=== PATIENT | female | born 1980 | race African-American/Black ===

== ENCOUNTER 2024-10-26 11:52 | Emergency (ER) | payer MEDICAID ==
[~2024-10-26] VITALS: Ht 170.2 cm; Wt 70.0 kg
[~2024-10-26 11:52] MED LIST: KEPP500 PO; PHEN100C4 PO
[2024-10-26 11:54] VITALS: O2SAT 99
[2024-10-26] MEDS: LEVETIRACETAM 1000MG PREMIX 100 ML IV ONE (12:40)
[2024-10-26] MEDS: IBUPROFEN 600MG TABLET PO STA (12:40)
[2024-10-26 13:09] LABS: RED CELL DISTRIBUTION WIDTH 15.6 % (11.6-14.6)
[2024-10-26 13:14] LABS: CHLORIDE 108 mEq/L (98-107); POTASSIUM 4.6 mEq/L (3.5-5.1); SODIUM 137 mEq/L (136-145)
[2024-10-26 13:15] LABS: CALCIUM 9.1 mg/dL (8.7-10.4); CARBON DIOXIDE 22 mEq/L (21-32)
[2024-10-26 13:19] LABS: HEMATOCRIT. 41.5 % (36.0-48.0); HEMOGLOBIN. 13.4 g/dL (12.0-16.0); MEAN CORPUSCULAR HGB CONC 32.3 g/dL (31.0-37.0); MEAN CORPUSCULAR VOLUME 86.7 fL (81.0-99.0); RED BLOOD CELL COUNT 4.78 mill/uL (4.2-5.4)
[2024-10-26 13:20] LABS: CREATININE 0.8 mg/dL (0.6-1.0); GLUCOSE 92 mg/dL (70-105); UREA NITROGEN BLOOD 14 mg/dL (9-23)
[2024-10-26 13:21] LABS: DIFFERENTIAL COMMENT 1
[2024-10-26] MEDS ORDERED: KEPP500 MT (13:37)
[2024-10-26] MEDS ORDERED: PHEN100C12 PO (13:46)
[2024-10-26 13:47] LABS: ETHANOL BLOOD < 10 mg/dL (<10)
[2024-10-26 14:45] VITALS: BP 132/83; PULSE 88; RESP 18; TEMP 37; O2SAT 99
[2024-10-26 17:08] LABS: MEAN PLATELET VOLUME 9.3 fl (7.4-10.4); PLATELET 216 x1000/uL (130-400)
[2024-10-26 17:10] LABS: PLATELET ESTIMATE NORMAL
== END 2024-10-26 15:00 | disposition home or self-care (01) ==
LOC: ER 11:52
DX: G40.909 Epilepsy, unspecified, not intractable, without status epilepticus (principal); S52.592D Other fractures of lower end of left radius, subsequent encounter for closed fracture with routine healing; F17.200 Nicotine dependence, unspecified, uncomplicated; I10 Essential (primary) hypertension; J45.909 Unspecified asthma, uncomplicated; Z79.899 Other long term (current) drug therapy; F10.90 Alcohol use, unspecified, uncomplicated; W19.XXXA Unspecified fall, initial encounter; Y90.9 Presence of alcohol in blood, level not specified
CPT/HCPCS: 80048; 80320; 85025; 36415; 73100; 96365; 99284; J1953; Z7610; C1893; G0480

== ENCOUNTER 2025-07-02 07:20 | Inpatient (IN) | payer MEDICAID ==
[~2025-07-02] VITALS: Ht 170.2 cm; Wt 77.1 kg
[~2025-07-02 07:20] MED LIST changes: +KEPP500 MT; +PHEN100C12 PO
[2025-07-02 07:22] VITALS: O2SAT 98
[2025-07-02 08:32] LABS: BASOPHILS % 0.7 % (0.0-2.0); EOSINOPHILS % 0.8 % (0.0-5.0); HEMATOCRIT. 40.2 % (36.0-48.0); HEMOGLOBIN. 12.9 g/dL (12.0-16.0); LYMPHOCYTES % 25.4 % (20.0-50.0); MEAN PLATELET VOLUME 8.4 fl (7.4-10.4); MONOCYTES % 7.9 % (2.0-8.0); NEUTROPHILS % 65.2 % (40.0-76.0); PLATELET 206 x1000/uL (130-400); RED BLOOD CELL COUNT 4.63 mill/uL (4.2-5.4); RED CELL DISTRIBUTION WIDTH 15.4 % (11.6-14.6)
[2025-07-02 08:46] LABS: HCG SCREEN NEGATIVE
[2025-07-02 08:48] LABS: CREATININE 0.9 mg/dL (0.6-1.0); UREA NITROGEN BLOOD 9 mg/dL (9-23)
[2025-07-02 08:49] LABS: ETHANOL BLOOD < 10 mg/dL (<10)
[2025-07-02] MEDS: LEVETIRACETAM 500MG TABLET PO ONE (08:56)
[2025-07-02] MEDS: LEVETIRACETAM 1000MG PREMIX 100 ML IV ONE (08:56)
[2025-07-02] MEDS ORDERED: ONDANSETRON HCL 4MG/2ML INJ IV PRN (10:30)
[2025-07-02] MEDS ORDERED: IPRATROPIUM/ALBUTEROL 0.5-3(2.5)MG/3ML NEB HHN PRN (10:30)
[2025-07-02] MEDS ORDERED: LORAZEPAM 2MG/ML UD SYRINGE IV PRN (10:30)
[2025-07-02] MEDS ORDERED: DOCUSATE SODIUM 100MG CAPSULE PO PRN (10:30)
[2025-07-02] MEDS ORDERED: GUAIFENESIN 200MG/10ML SUGAR FREE UDC PO PRN (10:30)
[2025-07-02] MEDS ORDERED: ACETAMINOPHEN 325MG TABLET PO PRN ×2 (10:30)
[2025-07-02] MEDS ORDERED: CLONIDINE 0.1MG TABLET PO PRN (10:30)
[2025-07-02] MEDS ORDERED: MAGNESIUM/ALUMINUM HYDROXIDE/SIMETHICONE 30ML UDC PO PRN (10:30)
[2025-07-02 11:34] LABS: PHENYTOIN < 2.0 ug/mL (10-20)
[2025-07-02] MEDS ORDERED: LEVETIRACETAM 1500MG PREMIX 100 ML IV SCH ×2 (12:00→21:00)
[2025-07-02] MEDS: LEVETIRACETAM 500MG/5ML CUP PO SCH (13:07)
[2025-07-02 16:00] VITALS: BP 118/65; PULSE 90; RESP 18; TEMP 36.6; O2SAT 98
[2025-07-02 17:00] VITALS: BP 114/67; PULSE 97; RESP 18; TEMP 36.5292
[2025-07-02 20:00] VITALS: BP 130/85; PULSE 78; RESP 18; TEMP 36.6; O2SAT 98
[2025-07-02] MEDS: LEVETIRACETAM 500MG TABLET PO SCH (21:47)
[2025-07-02] MEDS: AMLODIPINE 5MG TABLET PO SCH (21:47)
[2025-07-03 04:00] VITALS: BP 121/78; PULSE 77; RESP 18; TEMP 36.5; O2SAT 98
[2025-07-03] MEDS: PANTOPRAZOLE 40MG DR TABLET PO SCH (07:20)
[2025-07-03 07:39] LABS: BASOPHILS % 1.3 % (0.0-2.0); EOSINOPHILS % 1.4 % (0.0-5.0); HEMATOCRIT. 45.3 % (36.0-48.0); HEMOGLOBIN. 14.6 g/dL (12.0-16.0); LYMPHOCYTES % 36.3 % (20.0-50.0); MEAN PLATELET VOLUME 8.8 fl (7.4-10.4); MONOCYTES % 9.7 % (2.0-8.0); NEUTROPHILS % 51.3 % (40.0-76.0); PLATELET 230 x1000/uL (130-400); RED BLOOD CELL COUNT 5.24 mill/uL (4.2-5.4); RED CELL DISTRIBUTION WIDTH 15.3 % (11.6-14.6)
[2025-07-03 07:44] LABS: CREATININE 0.8 mg/dL (0.6-1.0); TRIGLYCERIDE 91 mg/dL (0-150); UREA NITROGEN BLOOD 9 mg/dL (9-23)
[2025-07-03 07:45] LABS: ASPARTATE AMINOTRANSFERASE 21 IU/L (<34); LDL CHOLESTEROL 111 mg/dL (5-100)
[2025-07-03 07:46] LABS: BILIRUBIN DIRECT < 0.1 mg/dL (<=3.0); BILIRUBIN TOTAL 0.3 mg/dL (0.1-1.0); PROTEIN TOTAL 8.3 g/dL (6.0-8.3); T4 FREE 0.84 ng/dL (0.89-1.76)
[2025-07-03] MEDS ORDERED: LIDOCAINE HCL 1% 10 MG/ML 10ML VIAL ONE (07:47)
[2025-07-03 08:00] VITALS: BP 120/67; PULSE 70; RESP 18; TEMP 36.5; O2SAT 100
[2025-07-03 12:00] VITALS: BP 128/85; PULSE 94; RESP 18; TEMP 36.4; O2SAT 95
[2025-07-03 16:00] VITALS: BP 123/78; PULSE 65; RESP 18; TEMP 36.5; O2SAT 100
[2025-07-03 20:00] VITALS: BP 125/89; PULSE 72; RESP 16; TEMP 36.6; O2SAT 99
[2025-07-04 04:00] VITALS: BP 128/84; PULSE 76; RESP 16; TEMP 36.3; O2SAT 99
[2025-07-04 07:22] LABS: BASOPHILS % 0.5 % (0.0-2.0); EOSINOPHILS % 1.6 % (0.0-5.0); HEMATOCRIT. 48.9 % (36.0-48.0); HEMOGLOBIN. 15.5 g/dL (12.0-16.0); LYMPHOCYTES % 35.5 % (20.0-50.0); MEAN PLATELET VOLUME 8.5 fl (7.4-10.4); MONOCYTES % 9.5 % (2.0-8.0); NEUTROPHILS % 52.9 % (40.0-76.0); PLATELET 227 x1000/uL (130-400); RED BLOOD CELL COUNT 5.56 mill/uL (4.2-5.4); RED CELL DISTRIBUTION WIDTH 15.7 % (11.6-14.6)
[2025-07-04 07:30] LABS: CREATININE 0.8 mg/dL (0.6-1.0); UREA NITROGEN BLOOD 11 mg/dL (9-23)
[2025-07-04 07:32] LABS: PHOSPHORUS 4.0 mg/dL (2.5-4.9)
[2025-07-04 08:00] VITALS: BP 112/80; PULSE 96; RESP 18; TEMP 36.6; O2SAT 100
[2025-07-04] MEDS ORDERED: KEPP500 PO (09:16)
[2025-07-04 09:53] VITALS: BP 112/80; PULSE 96; RESP 18; TEMP 97.9
== END 2025-07-04 10:23 | disposition home or self-care (01) | DRG 53 ==
LOC: ER 07:20 → 6EST 09:46 → ENRESERV 11:02
PROVIDERS: ADMIT Internal Medicine; ATTEND Internal Medicine
PROC: 02HV33Z Insertion of Infusion Device into Superior Vena Cava, Percutaneous Approach (ICD-10-PCS; principal; 2025-07-03)
PROC: B548ZZA Ultrasonography of Superior Vena Cava, Guidance (ICD-10-PCS; 2025-07-03)
DX: G40.909 Epilepsy, unspecified, not intractable, without status epilepticus (principal); E78.5 Hyperlipidemia, unspecified; I10 Essential (primary) hypertension; J45.909 Unspecified asthma, uncomplicated; Z91.148 Patient's other noncompliance with medication regimen for other reason; F17.210 Nicotine dependence, cigarettes, uncomplicated
CPT/HCPCS: 36415; 36573; 71045; 80048; 80061; 80076; 80185; 80320; 82542; 82550; 83735; 84100; 84439; 84443; 84703; 85025; 93005; 99285; A4606; C1752; J1953; J2003; G0480